=== PATIENT | male | born 1965 | race Caucasian/White ===

== ENCOUNTER 2024-05-06 07:44 | Emergency (ER) | payer SELFPAY ==
[2024-05-06 07:50] VITALS: BP 154/79
--- NOTE | 2024-05-06 09:12 | ED.GENMED ---
History of Present Illness
General
Chief Complaint: Musculo-Skeletal Complaint
Source: patient
Exam Limitations: none
Time Seen by Provider: 05/06/24 08:30
Nursing documentation reviewed up to this point in time: agreed with
History of Present Illness
History of Present Illness:
58-year-old male presenting to the emergency department today after dropping a weight on his chest prior to arrival. He claims that he was bench pressing 225 pounds. 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 The bar slipped out of
mainly his left hand striking him in the left chest. He merely felt pain to the area but to breathe normally since no significant coughing no significant shortness of breath. Denies any discomfort throughout his shoulders forearms.
Review of Systems
Review of Systems
Allergies reviewed?: Yes
All Other Systems: ROS reviewed and negative except as documented in HPI and ROS
Phy Exam
Physical Exam
Physical Exam:
GENERAL: Alert , in no apparent distress
EYE: pupils equal and reactive
NECK: Supple, no significant adenopathy.
ENT: o/p clr, mmm.
CARDIAC: Regular rate and rhythm .
LUNGS: Discomfort to the left lower anterior ribs without overlying skin changes. Lungs are clear clear breath sounds bilaterally, no acute respiratory distress, no wheezes/rales/rhonchi
ABDOMEN: Soft, without focal tenderness, no r/g, no cvat
NEUROLOGICAL: Alert and oriented, no focal neuro deficits
SKIN: Warm and dry, skin intact.
MUSCULOSKELETAL: No edema, well perfused.
PSYCH: Normal and appropriate interaction.
Course
Orders/Labs/Results
Orders:
Orders
05/06/24 07:54
Electrocardiogram (*1) Urgent
Reason for Study: Chest Pain
Ribs, Left 3 View W/PA Chest CR [CR Ribs-left 3 Vw W/pa Chest] Urgent
Comment:
Reason For Exam: dropped weight on tristan left rib area
05/06/24 07:55
EKG- Treatment ONCE
Vital Signs
Initial and Last Documented VS:
Initial Vital Signs
Temp Pulse Resp BP Pulse Ox
98.0 F 64 16 154/79 98
05/06/24 07:50 05/06/24 07:50 05/06/24 07:50 05/06/24 07:50 05/06/24 07:50
Last Documented Vital Signs
Temp Pulse Resp BP Pulse Ox
98.0 F 64 16 154/79 98
05/06/24 07:50 05/06/24 07:50 05/06/24 07:50 05/06/24 07:50 05/06/24 07:50
MDM/Problems Addressed
MDM/Problems Addressed:
58-year-old male presenting to the emergency department after dropping a 225 pound barbell on his left chest. Here he is in no distress minimal discomfort to palpation to the left anterior ribs. Vital signs are normal. Lungs are clear heart
sounds normal. Chest x-ray without emergent findings. Patient with likely soft tissue injury plan for symptomatic treatment otherwise stable for discharge return precautions given.
*Critical Care Note
Total Time (30-74mins, 75-104mins- exclusive of procedures): Not Applicable
ED Attending Note
-
Portions of this chart may have been created with voice recognition software.� Occasional wrong word or��sound alike� substitutions may have occurred due to the inherent limitations of voice recognition software.
Discharge Plan
Departure
Patient Disposition: Home (Routine Discharge)
Date of Disposition: 05/06/24
Time of Disposition: 09:19
Patient with high blood pressure during this ER visit?: No
Condition: Good
Covid-19: Not Applicable
Discharge Problem:
Rib contusion
Instructions: Rib injury in adults
Activity Restrictions/Additional Instructions:
You came to the emergency department today with concerns of an injury to your chest wall. Here your reassuring assessment. Please take Motrin and Tylenol and otherwise follow-up for any persisting symptoms. Return for any worsening, new or
concerning symptoms.
Interventions
Interventions:
*Risk Screen - Suicide Last Done: 05/06/24 07:50
*Neglect/Abuse Screening Last Done: 05/06/24 07:50
Discharge Date and Time
Print Language: SWISS
[2024-05-06] MEDS: LIDOCAINE 4% PATCH 1 PATCH TOPICAL (09:31)
[2024-05-06] MEDS: TYLENOL 650 MG PO (09:32)
[2024-05-06] MEDS: MOTRIN 600 MG PO (09:34)
== END 2024-05-06 09:50 | disposition home or self-care (01) ==
LOC: EMR 07:44
PROVIDERS: EMERGENCY PHYSICIAN Emergency Medicine
DX: S20.212A Contusion of left front wall of thorax, initial encounter (principal); W20.8XXA Other cause of strike by thrown, projected or falling object, initial encounter; Y93.B3 Activity, free weights
CPT/HCPCS: 99284; 71101; 93005